=== PATIENT | male | born 1975 | race Caucasian/White ===

== ENCOUNTER 2018-01-27 18:15 | Emergency (ER) | payer MEDICAID ==
[~2018-01-27] VITALS: Ht 157.5 cm; Wt 88.4 kg
[~2018-01-27 18:15] MED LIST: ATOR40TA78 PO; HYDR12.53; LOSA25TA5 PO; METF-365; PANT20TA2 PO; SITA1TAB5 PO
[2018-01-27] MEDS ORDERED: LIDOCAINE 2% VISCOUS, 100ML MM ONE (19:00)
[2018-01-27 19:15] LABS: BASOPHILS # (AUTO) 0.03 x10^3/uL (0-0.1); BASOPHILS % (AUTO) 0 % (0-1); EOSINOPHILS # (AUTO) 0.26 x10^3/uL (0-0.4); EOSINOPHILS % (AUTO) 4 % (1-7); LYMPHOCYTES # (AUTO) 2.63 x10^3/uL (1-3.4); LYMPHOCYTES % (AUTO) 39 % (22-44); MD NO; MEAN CORPUSCULAR HEMOGLOBIN 29.6 pg (27.5-34.5); MEAN CORPUSCULAR HGB CONC 34.1 g/dL (33.2-36.2); MEAN CORPUSCULAR VOLUME 86.7 fL (81-97); MEAN PLATELET VOLUME 7.8 fL (7.4-10.4); MONOCYTES # (AUTO) 0.33 x10^3/uL (0.2-0.8); MONOCYTES % (AUTO) 5 % (2-9); NEUTROPHILS # (AUTO) 3.57 x10^3/uL (1.8-6.8); NEUTROPHILS % (AUTO) 52 % (42-75); PLATELET COUNT 296 x10^3/uL (130-400); RED BLOOD COUNT 5.23 x10^6/uL (4.38-5.82); RED CELL DISTRIBUTION WIDTH 13.8 % (9.4-14.8)
[2018-01-27 19:24] LABS: ALANINE AMINOTRANSFERASE 32 U/L (12-78); ANION GAP 9 mmol/L (5-15); CALCIUM 8.4 mg/dL (8.5-10.1); CHLORIDE 104 mmol/L (98-107); CREATININE 1.03 mg/dL (0.7-1.3)
[2018-01-27 19:28] LABS: ALKALINE PHOSPHATASE 70 U/L (45-117); BILIRUBIN,TOTAL 0.4 mg/dL (0.2-1.0); TOTAL PROTEIN 7.6 g/dL (6.4-8.2)
[2018-01-27] MEDS ORDERED: LIDOCAINE GEL 2%, 5ML ONE (19:34)
[2018-01-27] MEDS ORDERED: HYDROmorphone 2 MG/ML, 1ML ONE (19:35)
[2018-01-27 19:44] VITALS: BP 132/83
[2018-01-27] MEDS ORDERED: HYDROmorphone 1 MG/ML, 1ML IM ONE (20:00)
[2018-01-27 21:08] LABS: MICROSCOPIC AUTO
[2018-01-27 21:20] LABS: CULTURE INDICATED? NO
[2018-01-27] MEDS ORDERED: OXYcodone/APAP 5/325MG TABLET ONE (21:29)
[2018-01-27] MEDS ORDERED: OXYcodone/APAP 5/325MG TABLET PO ONE (21:30)
== END 2018-01-27 21:40 | disposition home or self-care (01) ==
LOC: ED 21:10
DX: R33.9 Retention of urine, unspecified (principal); R14.0 Abdominal distension (gaseous); E78.00 Pure hypercholesterolemia, unspecified; I10 Essential (primary) hypertension; E11.9 Type 2 diabetes mellitus without complications
CPT/HCPCS: 36415; 51702; 80053; 81001; 85025; 96372; 99285; J1170; 51701; P9612

== ENCOUNTER 2018-02-13 08:24 | Emergency (ER) | payer MEDICAID, OTHER ==
[~2018-02-13] VITALS: Ht 157.5 cm; Wt 85.0 kg
[2018-02-13] MEDS ORDERED: HYDROcodone/APAP 5/325 TABLET PO PRN (09:30)
[2018-02-13] MEDS ORDERED: HYDROcodone/APAP 5/325 TABLET ONE (10:07)
[2018-02-13 10:53] VITALS: BP 136/70
== END 2018-02-13 10:55 | disposition home or self-care (01) ==
LOC: ED 09:54
DX: S16.1XXA Strain of muscle, fascia and tendon at neck level, initial encounter (principal); I10 Essential (primary) hypertension; E11.9 Type 2 diabetes mellitus without complications; V49.40XA Driver injured in collision with unspecified motor vehicles in traffic accident, initial encounter; Y93.89 Activity, other specified; Y92.89 Other specified places as the place of occurrence of the external cause; Y99.8 Other external cause status
CPT/HCPCS: 72125; 99284

== ENCOUNTER 2019-03-08 18:07 | Emergency (ER) | payer MEDICAID, OTHER ==
[~2019-03-08] VITALS: Ht 157.5 cm; Wt 82.8 kg
[2019-03-08 21:51] VITALS: BP 108/69
== END 2019-03-08 22:00 | disposition home or self-care (01) ==
LOC: ED 19:02
DX: N30.00 Acute cystitis without hematuria (principal); R10.11 Right upper quadrant pain; E78.5 Hyperlipidemia, unspecified; E78.00 Pure hypercholesterolemia, unspecified; E11.9 Type 2 diabetes mellitus without complications; I10 Essential (primary) hypertension; F17.200 Nicotine dependence, unspecified, uncomplicated
CPT/HCPCS: 36415; 76700; 80053; 81001; 83690; 85025; 87086; 96374; 96375; 99284; J1885; J2270; J2405

== ENCOUNTER 2019-07-23 09:01 | Emergency (ER) | payer SELFPAY ==
[~2019-07-23] VITALS: Ht 157.5 cm; Wt 89.5 kg
[~2019-07-23 09:01] MED LIST changes: +GABA300S PO; +HYDR12.517; -HYDR12.53; +LOSA25TA25 PO; -LOSA25TA5 PO; +METF-650 PO; +[UNRECOGNIZED DRUG - OTHER]
[2019-07-23 09:06] VITALS: BP 175/109
[2019-07-23] MEDS ORDERED: HYDROcodone/APAP 5/325 TABLET PO ONE (10:30)
[2019-07-23] MEDS ORDERED: HYDROcodone/APAP 5/325 TABLET ONE (10:35)
== END 2019-07-23 10:57 | disposition home or self-care (01) ==
LOC: ED 10:39
DX: K08.89 Other specified disorders of teeth and supporting structures (principal); I10 Essential (primary) hypertension; E11.9 Type 2 diabetes mellitus without complications; E78.5 Hyperlipidemia, unspecified; F17.200 Nicotine dependence, unspecified, uncomplicated
CPT/HCPCS: 99283

== ENCOUNTER 2019-09-04 17:48 | Emergency (ER) | payer SELFPAY ==
[~2019-09-04] VITALS: Ht 154.9 cm; Wt 86.0 kg
[2019-09-04] MEDS ORDERED: HYDROmorphone 1 MG/ML, 1ML INJ ONE (20:20)
[2019-09-04] MEDS ORDERED: HYDROmorphone 1 MG/ML, 1ML INJ IM ONE (20:30)
[2019-09-04 20:31] VITALS: BP 114/60
[2019-09-04 20:37] LABS: BASOPHILS # (AUTO) 0.02 x10^3/uL (0-0.1); BASOPHILS % (AUTO) 0 % (0-1); EOSINOPHILS # (AUTO) 0.03 x10^3/uL (0-0.4); EOSINOPHILS % (AUTO) 0 % (1-7); LYMPHOCYTES % (AUTO) 16 % (22-44); MD NO; MEAN CORPUSCULAR HEMOGLOBIN 29.9 pg (27.5-34.5); MEAN CORPUSCULAR HGB CONC 34.1 g/dL (33.2-36.2); MEAN CORPUSCULAR VOLUME 87.7 fL (81-97); MEAN PLATELET VOLUME 7.9 fL (7.4-10.4); MONOCYTES # (AUTO) 0.64 x10^3/uL (0.2-0.8); MONOCYTES % (AUTO) 5 % (2-9); NEUTROPHILS # (AUTO) 9.16 x10^3/uL (1.8-6.8); NEUTROPHILS % (AUTO) 78 % (42-75); PLATELET COUNT 279 x10^3/uL (130-400); RED BLOOD COUNT 5.36 x10^6/uL (4.38-5.82); RED CELL DISTRIBUTION WIDTH 12.9 % (9.4-14.8)
[2019-09-04 20:46] LABS: ANION GAP 9 mmol/L (5-15); CALCIUM 8.9 mg/dL (8.5-10.1); CHLORIDE 100 mmol/L (98-107); CREATININE 1.06 mg/dL (0.7-1.3)
[2019-09-04 20:50] LABS: MICROSCOPIC AUTO
[2019-09-04 20:57] LABS: CULTURE INDICATED? YES
[2019-09-04] MEDS ORDERED: CEFDINIR 300 MG CAPSULE ONE (22:24)
[2019-09-04] MEDS ORDERED: CEFDINIR 300 MG CAPSULE PO ONE (22:30)
== END 2019-09-04 22:34 | disposition home or self-care (01) ==
LOC: ED 20:11
DX: N30.00 Acute cystitis without hematuria (principal); N45.1 Epididymitis; I10 Essential (primary) hypertension; E11.9 Type 2 diabetes mellitus without complications; E78.5 Hyperlipidemia, unspecified; E78.00 Pure hypercholesterolemia, unspecified
CPT/HCPCS: 36415; 76870; 80048; 81001; 82040; 85025; 87077; 87086; 96372; 99284; J1170; 87186

== ENCOUNTER 2019-09-24 18:04 | Emergency (ER) | payer SELFPAY ==
[~2019-09-24] VITALS: Ht 162.6 cm; Wt 87.0 kg
--- NOTE | 2019-09-24 18:41 | NUR ---
PT TO ROOM 35 W/ C/O L TESTICLE SWELLING. PT STATES HE HAAD IT 1 WEEK AGO AND WAS SEEN HERE FOR SAME. WAS SENT HOME W/ ABX FOR UTI. PT STATES SWELLING STARTED AGAIN THIS AM BUT HAD TO GO TO WORK PRIOR TO COMING TO ED. PT RESTING ON GURNATACHA. NADN. VSS. PIV INITIATED. ERP DR. ETIENNE AT BEDSIDE.
[2019-09-24 18:54] LABS: BASOPHILS # (AUTO) 0.07 x10^3/uL (0-0.1); BASOPHILS % (AUTO) 1 % (0-1); EOSINOPHILS % (AUTO) 1 % (1-7); LYMPHOCYTES # (AUTO) 1.91 x10^3/uL (1-3.4); LYMPHOCYTES % (AUTO) 17 % (22-44); MD NO; MEAN CORPUSCULAR HEMOGLOBIN 29.7 pg (27.5-34.5); MEAN CORPUSCULAR HGB CONC 34.1 g/dL (33.2-36.2); MEAN CORPUSCULAR VOLUME 87.1 fL (81-97); MEAN PLATELET VOLUME 6.9 fL (7.4-10.4); MONOCYTES # (AUTO) 0.63 x10^3/uL (0.2-0.8); MONOCYTES % (AUTO) 6 % (2-9); NEUTROPHILS # (AUTO) 8.63 x10^3/uL (1.8-6.8); NEUTROPHILS % (AUTO) 76 % (42-75); PLATELET COUNT 419 x10^3/uL (130-400); RED BLOOD COUNT 4.93 x10^6/uL (4.38-5.82); RED CELL DISTRIBUTION WIDTH 12.9 % (9.4-14.8)
[2019-09-24] MEDS ORDERED: ONDANSETRON ODT 4 MG PO ONE (19:00)
[2019-09-24] MEDS ORDERED: KETOROLAC 30 MG/1 ML IVPush ONE (19:00)
[2019-09-24 19:03] LABS: ALBUMIN 3.9 g/dL (3.4-5.0); ANION GAP 8 mmol/L (5-15); CALCIUM 8.9 mg/dL (8.5-10.1); CHLORIDE 102 mmol/L (98-107)
--- NOTE | 2019-09-24 19:04 | NUR ---
REPORT GIVEN TO JOCELINE MTZ RN.
[2019-09-24] MEDS ORDERED: ONDANSETRON 2MG/ML, 2ML ONE (19:06)
[2019-09-24] MEDS ORDERED: KETOROLAC 30 MG/1 ML ONE (19:06)
[2019-09-24] MEDS ORDERED: HYDROcodone/APAP 5/325 TABLET ONE ×2 (19:07→21:13)
[2019-09-24] MEDS: HYDROcodone/APAP 5/325 TABLET PO PRN ×2 (19:17→21:17)
[2019-09-24 19:36] LABS: MICROSCOPIC AUTO
[2019-09-24 19:43] LABS: CULTURE INDICATED? YES
[2019-09-24] MEDS ORDERED: CIPROFLOXACIN 500 MG TABLET PO ONE (21:00)
[2019-09-24] MEDS ORDERED: CIPROFLOXACIN 500 MG TABLET ONE (21:12)
[2019-09-24 21:18] VITALS: BP 103/75
[2019-09-24] MEDS ORDERED: CEFTRIAXONE 1,000 MG ONE (21:22)
[2019-09-24] MEDS ORDERED: CEFTRIAXONE 1,000 MG IM ONE (21:30)
== END 2019-09-24 21:50 | disposition home or self-care (01) ==
LOC: ED 21:20
DX: N30.00 Acute cystitis without hematuria (principal); N50.812 Left testicular pain; N45.1 Epididymitis; I10 Essential (primary) hypertension; E11.9 Type 2 diabetes mellitus without complications; E78.00 Pure hypercholesterolemia, unspecified; E78.5 Hyperlipidemia, unspecified
CPT/HCPCS: 36415; 76870; 80048; 81001; 82040; 85025; 87077; 87086; 87186; 87491; 87591; 93975; 96372; 96374; 99285; J0696; J1885; Q0162

== ENCOUNTER 2019-10-26 09:11 | Emergency (ER) | payer MEDICAID, OTHER ==
[~2019-10-26] VITALS: Ht 157.5 cm; Wt 84.5 kg
--- NOTE | 2019-10-26 10:25 | NUR ---
PATIENT DENIES FEVER; BUT COMPLAINS OF POLYURIA/DYSURIA X 10 HOURS DOES NOT APPEAR TOXIC BLADDER SCAN OF 435ML
--- NOTE | 2019-10-26 10:36 | NUR ---
STRAIGHT CATHERIZED FOR 500ML OF C/Y URINE. UA SENT
[2019-10-26 11:03] LABS: MICROSCOPIC AUTO
[2019-10-26 11:07] LABS: CULTURE INDICATED? YES
[2019-10-26 11:15] VITALS: BP 138/71
[2019-10-26] MEDS ORDERED: LIDOCAINE-MPF 1%, 2ML ONE (11:29)
[2019-10-26] MEDS ORDERED: CEFTRIAXONE 1,000 MG ONE (11:29)
[2019-10-26] MEDS ORDERED: CEFTRIAXONE 1,000 MG IM ONE (11:30)
[2019-10-26] MEDS ORDERED: LIDOCAINE 1%, 2ML INFIL ONE (12:00)
== END 2019-10-26 12:00 | disposition home or self-care (01) ==
LOC: ED 11:54
DX: N30.00 Acute cystitis without hematuria (principal); R30.0 Dysuria; F17.200 Nicotine dependence, unspecified, uncomplicated; E78.00 Pure hypercholesterolemia, unspecified; E11.65 Type 2 diabetes mellitus with hyperglycemia; E78.5 Hyperlipidemia, unspecified; I10 Essential (primary) hypertension; E66.9 Obesity, unspecified
CPT/HCPCS: 81001; 87077; 87086; 96372; 99283; J0696; J3490; 87186

== ENCOUNTER 2019-12-01 19:30 | Inpatient (IN) | payer MEDICAID ==
[~2019-12-01] VITALS: Ht 157.5 cm; Wt 87.9 kg
--- NOTE | 2019-12-01 20:00 | NUR ---
PT PRESENTING TO ER FOR RIGHT UPPER ABD PAIN AND EPIGASTRIC PAIN, N/V/D X3-4 DAYS. PT STS PAIN WORSENS AFTER EATING AND WHEN LAYING DOWN. CONNECTED TO ALL MONITORING, TACHY HR 130S AND RAPID RESP RATE. IV PLACED, LABS DRAWN. AWAITING ORDERS FROM MD AT THIS TIME. CALL LIGHT WITHIN REACH
[2019-12-01] MEDS ORDERED: HYDROmorphone 2 MG/ML, 1ML ONE ×2 (20:21→22:47)
[2019-12-01] MEDS ORDERED: ONDANSETRON 2MG/ML, 2ML ONE (20:21)
[2019-12-01] MEDS ORDERED: ONDANSETRON 2MG/ML, 2ML IVPush ONE (20:30)
[2019-12-01] MEDS ORDERED: SODIUM CHLORIDE 0.9% 1,000ML IVBOLUS ONE (20:30)
[2019-12-01] MEDS: HYDROmorphone 1 MG/ML, 1ML INJ IVPush PRN ×2 (20:33→22:52)
--- NOTE | 2019-12-01 20:51 | NUR ---
PT RESTING MORE COMFORTABLY IN BED AFTER MEDS GIVEN. US AT BEDSIDE. PT AWARE OF NEED FOR URINE SAMPLE. CALL LIGHT WITHIN REACH. WILL CONTINUE TO MONITOR
[2019-12-01 20:58] LABS: BASOPHILS # (AUTO) 0.03 x10^3/uL (0-0.1); BASOPHILS % (AUTO) 0 % (0-1); EOSINOPHILS # (AUTO) 0.17 x10^3/uL (0-0.4); EOSINOPHILS % (AUTO) 2 % (1-7); LYMPHOCYTES # (AUTO) 0.93 x10^3/uL (1-3.4); LYMPHOCYTES % (AUTO) 11 % (22-44); MD NO; MEAN CORPUSCULAR HEMOGLOBIN 28.4 pg (27.5-34.5); MEAN CORPUSCULAR VOLUME 83.5 fL (81-97); MEAN PLATELET VOLUME 7.7 fL (7.4-10.4); MONOCYTES # (AUTO) 0.29 x10^3/uL (0.2-0.8); MONOCYTES % (AUTO) 3 % (2-9); NEUTROPHILS # (AUTO) 7.33 x10^3/uL (1.8-6.8); NEUTROPHILS % (AUTO) 84 % (42-75); PLATELET COUNT 278 x10^3/uL (130-400); RED BLOOD COUNT 5.52 x10^6/uL (4.38-5.82); RED CELL DISTRIBUTION WIDTH 14.1 % (9.4-14.8)
[2019-12-01 21:10] LABS: ALANINE AMINOTRANSFERASE 26 U/L (12-78); ALBUMIN 4.1 g/dL (3.4-5.0); ANION GAP 13 mmol/L (5-15); CALCIUM 9.2 mg/dL (8.5-10.1); CHLORIDE 101 mmol/L (98-107); CREATININE 0.89 mg/dL (0.7-1.3)
[2019-12-01 21:14] LABS: ALKALINE PHOSPHATASE 85 U/L (45-117); BILIRUBIN,TOTAL 0.8 mg/dL (0.2-1.0); TOTAL PROTEIN 8.5 g/dL (6.4-8.2); TROPONIN I < 0.015 ng/mL (0.000-0.045)
--- NOTE | 2019-12-01 21:19 | NUR ---
PT TAKEN TO CT
[2019-12-01] MEDS ORDERED: OMNIPAQUE 350 MG/ML, 100ML BOTTLE ONE (21:30)
[2019-12-01] MEDS ORDERED: POTASSIUM CHLORIDE 20 MEQ in SODIUM CHLORIDE 0.9% 250 ML IV ONE (21:30)
[2019-12-01] MEDS ORDERED: SITA1TAB5 PO (22:05)
[2019-12-01] MEDS ORDERED: GABA300C10 PO (22:05)
[2019-12-01] MEDS ORDERED: METF1000 PO (22:05)
--- NOTE | 2019-12-01 22:06 | NUR ---
TASK RN: DR. MELENDEZ IN TO DISCUSS ED FINDINGS AND POC WITH PT. PT. REPORTS TO ERMD THAT HE STRAIGHT CATH'S HIMSELF X [address] MELENDEZ DISCUSSING NEED FOR CATHETER WITH PT. IVF INFUSING PER ORDER. MED REC COMPLETED WITH PT. VS UPDATED. ALL SAFETY MEASURES OBSERVED.
--- NOTE | 2019-12-01 22:32 | NUR ---
TEMPLE PLACED, UA COLLECTED AND SENT. PT STS PAIN IS INCREASING, ADDITIONAL MEDS TO BE GIVEN FOR PAIN. AWAITING FURTHER ORDERS AT THIS TIME
[2019-12-01 22:41] LABS: MICROSCOPIC AUTO
[2019-12-01 22:43] LABS: CULTURE INDICATED? YES
--- NOTE | 2019-12-01 22:55 | NUR ---
REPORT GIVEN TO RADHA REYNAGA
[2019-12-01] MEDS ORDERED: CIPROFLOXACIN/PMX 400MG/200ML 200 ML IV ONE (23:00)
--- NOTE | 2019-12-01 23:02 | NUR ---
1ST CONTACT C PT. RESTING ON CART. STATES PAIN DECRASED TO 5/10. MILD PRESSURE TO RUQ AREA. TEMPLE FLOWING WELL. VSS. REQUESTNG FOOD & DRINK. CALL LIGHT IN REACH. AWARE OF PLAN TO ADMIT.
[2019-12-01] MEDS ORDERED: SODIUM CHLORIDE 0.9% 1,000 ML IV ONE (23:11)
--- NOTE | 2019-12-01 23:25 | NUR ---
PT GIVEN SANDWICH. ADMITTING AT BS. DENIES ANY OTHER NEEDS. AWARE OF PENDING BED.
[2019-12-01] MEDS ORDERED: MORPHINE SULFATE 4 MG/ML, 1ML IVPush PRN (23:30)
[2019-12-01] MEDS ORDERED: ONDANSETRON 2MG/ML, 2ML IVPush PRN (23:30)
[2019-12-02] MEDS ORDERED: ONDANSETRON 2MG/ML, 2ML IVPush PRN
[2019-12-02] MEDS ORDERED: ACETAMINOPHEN 325 MG TABLET PO PRN
[2019-12-02] MEDS ORDERED: POTASSIUM CHLORIDE 20 MEQ TAB.ER.PRT PO ONE
[2019-12-02] MEDS ORDERED: POLYETHYLENE GLYCOL 17 GM PACKET PO PRN
[2019-12-02 00:42] VITALS: BP 111/66
[2019-12-02] MEDS: CIPROFLOXACIN/PMX 400MG/200ML 200 ML IV SCH ×2 (01:03→12:01)
[2019-12-02] MEDS: NICOTINE 7 MG/24 HR PATCH.TD24 TD SCH (01:04)
[2019-12-02] MEDS: morphine SULFATE 10 MG/ML, 1ML IVPush PRN ×5 (01:04→20:32)
[2019-12-02] MEDS: SODIUM CHLORIDE 0.9% 1,000 ML IV SCH ×3 (01:04→17:05)
[2019-12-02 06:31] LABS: BASOPHILS # (AUTO) 0.03 x10^3/uL (0-0.1); BASOPHILS % (AUTO) 0 % (0-1); EOSINOPHILS # (AUTO) 0.02 x10^3/uL (0-0.4); EOSINOPHILS % (AUTO) 0 % (1-7); LYMPHOCYTES # (AUTO) 0.91 x10^3/uL (1-3.4); LYMPHOCYTES % (AUTO) 12 % (22-44); MD NO; MEAN CORPUSCULAR HEMOGLOBIN 28.7 pg (27.5-34.5); MEAN CORPUSCULAR HGB CONC 33.6 g/dL (33.2-36.2); MEAN CORPUSCULAR VOLUME 85.4 fL (81-97); MEAN PLATELET VOLUME 7.3 fL (7.4-10.4); MONOCYTES # (AUTO) 0.69 x10^3/uL (0.2-0.8); MONOCYTES % (AUTO) 9 % (2-9); NEUTROPHILS # (AUTO) 5.78 x10^3/uL (1.8-6.8); NEUTROPHILS % (AUTO) 78 % (42-75); PLATELET COUNT 237 x10^3/uL (130-400); RED BLOOD COUNT 4.83 x10^6/uL (4.38-5.82); RED CELL DISTRIBUTION WIDTH 14.4 % (9.4-14.8)
[2019-12-02 06:43] LABS: CHLORIDE 106 mmol/L (98-107)
[2019-12-02 06:46] LABS: ANION GAP 10 mmol/L (5-15); CALCIUM 8.2 mg/dL (8.5-10.1); CREATININE 0.86 mg/dL (0.7-1.3)
[2019-12-02] MEDS: INSULIN LISPRO 100 UNITS/ML, PEN SQ-INSULIN SCH ×4 (07:00→21:47)
[2019-12-02 08:10] VITALS: BP 114/72
[2019-12-02] MEDS: LOSARTAN 25MG TABLET PO SCH (08:58)
[2019-12-02] MEDS: PANTOPRAZOLE 20MG TABLET PO SCH (08:58)
[2019-12-02] MEDS: SENNA/DOCUSATE TABLET PO SCH (08:58)
[2019-12-02 14:52] VITALS: BP 121/73
[2019-12-02] MEDS: PHENAZOPYRIDINE 100 MG TABLET PO PRN (18:29)
[2019-12-02] MEDS: ENOXAPARIN 40 MG/0.4 ML SQ SCH (18:29)
[2019-12-02] MEDS: ATORVASTATIN 40 MG TABLET PO SCH (20:32)
[2019-12-02] MEDS: GABAPENTIN 300 MG CAPSULE PO SCH (20:32)
[2019-12-02 20:52] VITALS: BP 107/65
[2019-12-03] MEDS: CIPROFLOXACIN/PMX 400MG/200ML 200 ML IV SCH (00:13)
[2019-12-03] MEDS: NICOTINE 7 MG/24 HR PATCH.TD24 TD SCH ×2 (00:13→23:56)
[2019-12-03] MEDS: PHENAZOPYRIDINE 100 MG TABLET PO PRN ×4 (00:16→21:51)
[2019-12-03 01:58] VITALS: BP 119/76
[2019-12-03] MEDS: SODIUM CHLORIDE 0.9% 1,000 ML IV SCH ×3 (03:16→23:57)
[2019-12-03 05:53] LABS: ALBUMIN 2.8 g/dL (3.4-5.0); ANION GAP 7 mmol/L (5-15); CALCIUM 8.2 mg/dL (8.5-10.1); CHLORIDE 106 mmol/L (98-107)
[2019-12-03 05:55] LABS: ALANINE AMINOTRANSFERASE 20 U/L (12-78); ALKALINE PHOSPHATASE 61 U/L (45-117); BILIRUBIN,TOTAL 0.6 mg/dL (0.2-1.0); CREATININE 0.75 mg/dL (0.7-1.3); TOTAL PROTEIN 6.6 g/dL (6.4-8.2)
[2019-12-03] MEDS: INSULIN LISPRO 100 UNITS/ML, PEN SQ-INSULIN SCH ×4 (07:00→20:52)
[2019-12-03] MEDS: PANTOPRAZOLE 20MG TABLET PO SCH (08:22)
[2019-12-03] MEDS: SENNA/DOCUSATE TABLET PO SCH (08:22)
[2019-12-03] MEDS: LOSARTAN 25MG TABLET PO SCH (08:23)
[2019-12-03 09:46] VITALS: BP 126/83
[2019-12-03 10:22] LABS: BASOPHILS # (AUTO) 0.02 x10^3/uL (0-0.1); BASOPHILS % (AUTO) 0 % (0-1); EOSINOPHILS # (AUTO) 0.12 x10^3/uL (0-0.4); EOSINOPHILS % (AUTO) 2 % (1-7); LYMPHOCYTES # (AUTO) 0.97 x10^3/uL (1-3.4); LYMPHOCYTES % (AUTO) 16 % (22-44); MD NO; MEAN CORPUSCULAR HEMOGLOBIN 28.3 pg (27.5-34.5); MEAN CORPUSCULAR VOLUME 85.7 fL (81-97); MEAN PLATELET VOLUME 7.6 fL (7.4-10.4); MONOCYTES # (AUTO) 0.31 x10^3/uL (0.2-0.8); MONOCYTES % (AUTO) 5 % (2-9); NEUTROPHILS % (AUTO) 76 % (42-75); PLATELET COUNT 197 x10^3/uL (130-400); RED CELL DISTRIBUTION WIDTH 14.4 % (9.4-14.8)
[2019-12-03] MEDS: CEFTRIAXONE PMX 2GM/50ML 50 ML IV SCH (12:54)
[2019-12-03 14:00] VITALS: BP 130/86
[2019-12-03] MEDS: ENOXAPARIN 40 MG/0.4 ML SQ SCH (18:12)
[2019-12-03 19:30] VITALS: BP 137/91
[2019-12-03] MEDS: ATORVASTATIN 40 MG TABLET PO SCH (20:51)
[2019-12-03] MEDS: GABAPENTIN 300 MG CAPSULE PO SCH (20:51)
[2019-12-03] MEDS: morphine SULFATE 10 MG/ML, 1ML IVPush PRN ×2 (20:52→23:57)
[2019-12-04 01:45] VITALS: BP 110/74
[2019-12-04 06:42] LABS: BASOPHILS # (AUTO) 0.02 x10^3/uL (0-0.1); BASOPHILS % (AUTO) 1 % (0-1); EOSINOPHILS # (AUTO) 0.19 x10^3/uL (0-0.4); EOSINOPHILS % (AUTO) 4 % (1-7); LYMPHOCYTES # (AUTO) 1.18 x10^3/uL (1-3.4); LYMPHOCYTES % (AUTO) 24 % (22-44); MD NO; MEAN CORPUSCULAR HEMOGLOBIN 28.5 pg (27.5-34.5); MEAN CORPUSCULAR HGB CONC 33.7 g/dL (33.2-36.2); MEAN CORPUSCULAR VOLUME 84.6 fL (81-97); MEAN PLATELET VOLUME 7.6 fL (7.4-10.4); MONOCYTES # (AUTO) 0.65 x10^3/uL (0.2-0.8); MONOCYTES % (AUTO) 13 % (2-9); NEUTROPHILS # (AUTO) 2.83 x10^3/uL (1.8-6.8); NEUTROPHILS % (AUTO) 58 % (42-75); PLATELET COUNT 226 x10^3/uL (130-400); RED BLOOD COUNT 4.57 x10^6/uL (4.38-5.82); RED CELL DISTRIBUTION WIDTH 13.8 % (9.4-14.8)
[2019-12-04 06:52] LABS: ALBUMIN 2.8 g/dL (3.4-5.0); ANION GAP 7 mmol/L (5-15); CALCIUM 8.3 mg/dL (8.5-10.1); CHLORIDE 106 mmol/L (98-107)
[2019-12-04 06:55] LABS: ALANINE AMINOTRANSFERASE 30 U/L (12-78); ALKALINE PHOSPHATASE 68 U/L (45-117); BILIRUBIN,TOTAL 0.4 mg/dL (0.2-1.0); CREATININE 0.64 mg/dL (0.7-1.3); TOTAL PROTEIN 6.9 g/dL (6.4-8.2)
[2019-12-04 07:21] VITALS: BP 121/76
[2019-12-04] MEDS ORDERED: LIDOCAINE JELLY 2%, 30GM TP ONE (08:00)
[2019-12-04] MEDS: PANTOPRAZOLE 20MG TABLET PO SCH (08:06)
[2019-12-04] MEDS: INSULIN LISPRO 100 UNITS/ML, PEN SQ-INSULIN SCH ×4 (08:06→21:00)
[2019-12-04] MEDS: SENNA/DOCUSATE TABLET PO SCH (08:06)
[2019-12-04] MEDS: LOSARTAN 25MG TABLET PO SCH (08:06)
[2019-12-04] MEDS: PHENAZOPYRIDINE 100 MG TABLET PO PRN ×3 (08:10→22:36)
[2019-12-04] MEDS ORDERED: SINCALIDE (KINEVAC) 5 MCG ONE (09:05)
[2019-12-04] MEDS: morphine SULFATE 10 MG/ML, 1ML IVPush PRN ×2 (10:19→17:18)
[2019-12-04] MEDS: CEFTRIAXONE PMX 2GM/50ML 50 ML IV SCH (11:30)
[2019-12-04 13:04] VITALS: BP 106/72
[2019-12-04] MEDS: SODIUM CHLORIDE 0.9% 1,000 ML IV SCH ×2 (14:34→22:47)
[2019-12-04] MEDS: ENOXAPARIN 40 MG/0.4 ML SQ SCH (18:09)
[2019-12-04 19:08] VITALS: BP 104/70
[2019-12-04 19:23] LABS: MICROSCOPIC AUTO
[2019-12-04] MEDS: ATORVASTATIN 40 MG TABLET PO SCH (22:35)
[2019-12-04] MEDS: GABAPENTIN 300 MG CAPSULE PO SCH (22:35)
[2019-12-04] MEDS: NICOTINE 7 MG/24 HR PATCH.TD24 TD SCH (22:47)
[2019-12-05 00:31] VITALS: BP 122/80
[2019-12-05] MEDS: PHENAZOPYRIDINE 100 MG TABLET PO PRN ×2 (06:47→15:17)
[2019-12-05] MEDS: INSULIN LISPRO 100 UNITS/ML, PEN SQ-INSULIN SCH ×4 (07:00→21:00)
[2019-12-05 08:03] VITALS: BP 141/86
[2019-12-05] MEDS: LOSARTAN 25MG TABLET PO SCH (08:37)
[2019-12-05] MEDS: SENNA/DOCUSATE TABLET PO SCH (08:37)
[2019-12-05] MEDS: PANTOPRAZOLE 20MG TABLET PO SCH (08:37)
[2019-12-05] MEDS: SODIUM CHLORIDE 0.9% 1,000 ML IV SCH ×2 (08:37→17:20)
[2019-12-05] MEDS: morphine SULFATE 10 MG/ML, 1ML IVPush PRN ×2 (10:59→21:00)
[2019-12-05] MEDS: CEFTRIAXONE PMX 2GM/50ML 50 ML IV SCH (11:45)
[2019-12-05 14:00] VITALS: BP 118/72
[2019-12-05] MEDS: ENOXAPARIN 40 MG/0.4 ML SQ SCH (17:20)
[2019-12-05] MEDS: GABAPENTIN 300 MG CAPSULE PO SCH (20:59)
[2019-12-05] MEDS: ATORVASTATIN 40 MG TABLET PO SCH (20:59)
[2019-12-05 21:07] VITALS: BP 137/88
[2019-12-06 00:18] VITALS: BP 117/79
[2019-12-06] MEDS: NICOTINE 7 MG/24 HR PATCH.TD24 TD SCH (00:19)
[2019-12-06] MEDS: SODIUM CHLORIDE 0.9% 1,000 ML IV SCH ×2 (04:17→14:19)
[2019-12-06] MEDS: PHENAZOPYRIDINE 100 MG TABLET PO PRN ×3 (05:53→22:10)
[2019-12-06] MEDS: PANTOPRAZOLE 20MG TABLET PO SCH (07:53)
[2019-12-06] MEDS: LOSARTAN 25MG TABLET PO SCH (07:53)
[2019-12-06] MEDS: INSULIN LISPRO 100 UNITS/ML, PEN SQ-INSULIN SCH ×4 (07:55→22:10)
[2019-12-06 08:06] VITALS: BP 139/87
[2019-12-06] MEDS: SENNA/DOCUSATE TABLET PO SCH (09:00)
[2019-12-06] MEDS: morphine SULFATE 10 MG/ML, 1ML IVPush PRN ×2 (09:19→18:10)
[2019-12-06] MEDS: CEFTRIAXONE PMX 2GM/50ML 50 ML IV SCH (11:40)
[2019-12-06 15:01] VITALS: BP 119/82
[2019-12-06] MEDS: ENOXAPARIN 40 MG/0.4 ML SQ SCH (16:22)
[2019-12-06 19:22] VITALS: BP 121/79
[2019-12-06] MEDS: GABAPENTIN 300 MG CAPSULE PO SCH (22:11)
[2019-12-06] MEDS: ATORVASTATIN 40 MG TABLET PO SCH (22:11)
[2019-12-07] MEDS: NICOTINE 7 MG/24 HR PATCH.TD24 TD SCH (00:21)
[2019-12-07] MEDS: morphine SULFATE 10 MG/ML, 1ML IVPush PRN ×2 (00:40→08:46)
[2019-12-07] MEDS: SODIUM CHLORIDE 0.9% 1,000 ML IV SCH ×3 (00:40→20:58)
[2019-12-07 00:42] VITALS: BP 133/84
[2019-12-07 04:48] LABS: HCT (SEDRATE) 40.1 % (39.2-51.8)
[2019-12-07 04:55] LABS: BASOPHILS # (AUTO) 0.04 x10^3/uL (0-0.1); BASOPHILS % (AUTO) 1 % (0-1); EOSINOPHILS # (AUTO) 0.26 x10^3/uL (0-0.4); EOSINOPHILS % (AUTO) 5 % (1-7); LYMPHOCYTES # (AUTO) 1.65 x10^3/uL (1-3.4); LYMPHOCYTES % (AUTO) 29 % (22-44); MD NO; MEAN CORPUSCULAR HEMOGLOBIN 27.8 pg (27.5-34.5); MEAN CORPUSCULAR HGB CONC 32.8 g/dL (33.2-36.2); MEAN CORPUSCULAR VOLUME 84.7 fL (81-97); MEAN PLATELET VOLUME 6.6 fL (7.4-10.4); MONOCYTES # (AUTO) 0.47 x10^3/uL (0.2-0.8); MONOCYTES % (AUTO) 8 % (2-9); NEUTROPHILS % (AUTO) 57 % (42-75); PLATELET COUNT 322 x10^3/uL (130-400); RED BLOOD COUNT 4.75 x10^6/uL (4.38-5.82); RED CELL DISTRIBUTION WIDTH 14.4 % (9.4-14.8)
[2019-12-07 04:58] LABS: ALANINE AMINOTRANSFERASE 50 U/L (12-78); ANION GAP 7 mmol/L (5-15); C-REACTIVE PROTEIN, QUANT 0.88 mg/dL (0.02-0.49); CALCIUM 8.5 mg/dL (8.5-10.1); CHLORIDE 106 mmol/L (98-107)
[2019-12-07 05:00] LABS: ALKALINE PHOSPHATASE 73 U/L (45-117); BILIRUBIN,TOTAL 0.4 mg/dL (0.2-1.0); CREATININE 0.75 mg/dL (0.7-1.3); TOTAL PROTEIN 7.3 g/dL (6.4-8.2)
[2019-12-07 07:37] VITALS: BP 146/98
[2019-12-07] MEDS: SENNA/DOCUSATE TABLET PO SCH ×2 (08:42→08:50)
[2019-12-07] MEDS: PANTOPRAZOLE 20MG TABLET PO SCH (08:45)
[2019-12-07] MEDS: LOSARTAN 25MG TABLET PO SCH (08:45)
[2019-12-07] MEDS: PHENAZOPYRIDINE 100 MG TABLET PO PRN ×2 (08:45→16:24)
[2019-12-07] MEDS: INSULIN LISPRO 100 UNITS/ML, PEN SQ-INSULIN SCH ×4 (08:46→20:50)
[2019-12-07] MEDS: CEFTRIAXONE PMX 2GM/50ML 50 ML IV SCH (11:52)
[2019-12-07] MEDS: MORPHINE SULFATE 4 MG/ML, 1ML IVPush PRN ×3 (11:53→20:51)
[2019-12-07 13:45] VITALS: BP 127/78
[2019-12-07] MEDS ORDERED: OMNIPAQUE 350 MG/ML, 100ML BOTTLE ONE (16:14)
[2019-12-07] MEDS: ENOXAPARIN 40 MG/0.4 ML SQ SCH (16:24)
[2019-12-07 18:45] VITALS: BP 136/85
[2019-12-07] MEDS: GABAPENTIN 300 MG CAPSULE PO SCH (20:51)
[2019-12-07] MEDS: ATORVASTATIN 40 MG TABLET PO SCH (20:51)
[2019-12-08] MEDS: PHENAZOPYRIDINE 100 MG TABLET PO PRN ×3 (00:06→15:58)
[2019-12-08] MEDS: NICOTINE 7 MG/24 HR PATCH.TD24 TD SCH (00:06)
[2019-12-08 02:00] VITALS: BP 126/88
[2019-12-08] MEDS: MORPHINE SULFATE 4 MG/ML, 1ML IVPush PRN ×5 (02:51→15:58)
[2019-12-08] MEDS: SODIUM CHLORIDE 0.9% 1,000 ML IV SCH (06:24)
[2019-12-08 07:12] VITALS: BP 136/89
[2019-12-08] MEDS: INSULIN LISPRO 100 UNITS/ML, PEN SQ-INSULIN SCH ×3 (08:08→15:59)
[2019-12-08] MEDS: SENNA/DOCUSATE TABLET PO SCH (08:08)
[2019-12-08] MEDS: LOSARTAN 25MG TABLET PO SCH (08:08)
[2019-12-08] MEDS: PANTOPRAZOLE 20MG TABLET PO SCH (08:08)
[2019-12-08] MEDS ORDERED: TAMSULOSIN 0.4 MG CAP.ER.24H PO SCH (09:00)
[2019-12-08] MEDS ORDERED: OXYBUTYNIN CHLORIDE 5 MG TABLET PO PRN (12:00)
[2019-12-08 12:28] VITALS: BP 124/83
[2019-12-08] MEDS: CEFTRIAXONE PMX 2GM/50ML 50 ML IV SCH (12:56)
[2019-12-08] MEDS ORDERED: CEFT2FRO2 IVPB (15:36)
[2019-12-08] MEDS ORDERED: PHEN-582 PO (15:36)
[2019-12-08] MEDS ORDERED: OXYB5TAB10 PO (15:36)
[2019-12-08] MEDS ORDERED: TAMS-11 PO (15:36)
[2019-12-08] MEDS: ENOXAPARIN 40 MG/0.4 ML SQ SCH (15:59)
== END 2019-12-08 19:00 | disposition home health service (06) | DRG 871 ==
LOC: ED 19:54 → EDIP 23:15 → 3N 12-02 00:40
PROVIDERS: ADMIT Family Medicine; ATTEND Family Medicine
PROC: 02HV33Z Insertion of Infusion Device into Superior Vena Cava, Percutaneous Approach (ICD-10-PCS; principal; 2019-12-08)
PROC: B5181ZA Fluoroscopy of Superior Vena Cava using Low Osmolar Contrast, Guidance (ICD-10-PCS; 2019-12-08)
PROC: B548ZZA Ultrasonography of Superior Vena Cava, Guidance (ICD-10-PCS; 2019-12-08)
DX: A41.51 Sepsis due to Escherichia coli [E. coli] (principal); K65.1 Peritoneal abscess; N13.6 Pyonephrosis; N41.0 Acute prostatitis; N41.2 Abscess of prostate; E11.65 Type 2 diabetes mellitus with hyperglycemia; E78.00 Pure hypercholesterolemia, unspecified; E78.5 Hyperlipidemia, unspecified; E86.0 Dehydration; E87.6 Hypokalemia; F17.210 Nicotine dependence, cigarettes, uncomplicated; I10 Essential (primary) hypertension; K76.0 Fatty (change of) liver, not elsewhere classified; N31.9 Neuromuscular dysfunction of bladder, unspecified; N32.0 Bladder-neck obstruction; N40.1 Benign prostatic hyperplasia with lower urinary tract symptoms; R33.8 Other retention of urine; Z79.84 Long term (current) use of oral hypoglycemic drugs; Z88.8 Allergy status to other drugs, medicaments and biological substances
CPT/HCPCS: 36415; 36573; 71045; 74177; 76700; 78227; 80048; 80053; 81001; 82962; 83605; 83690; 83735; 84145; 84484; 85025; 85651; 86140; 87040; 87077; 87086; 87186; 87491; 87591; 87806; 93005; 96361; 96374; G0378; J0696; J0744; J1170; J1650; J2405; J3480; Q9967; A9537; C1751; G0475; J1815; J2270; J2805; J7030; J7050

== ENCOUNTER 2020-03-15 18:05 | Emergency (ER) | payer MEDICAID ==
[~2020-03-15] VITALS: Ht 157.5 cm; Wt 83.9 kg
[~2020-03-15 18:05] MED LIST changes: +CEFT2FRO2 IVPB; +GABA300C10 PO; +METF1000 PO; +OXYB5TAB10 PO; +PHEN-582 PO; +TAMS-11 PO
[2020-03-15 19:08] LABS: MICROSCOPIC AUTO
[2020-03-15 19:12] VITALS: BP 123/76
== END 2020-03-15 20:42 | disposition home or self-care (01) ==
LOC: ED 18:40
DX: N30.00 Acute cystitis without hematuria (principal); I10 Essential (primary) hypertension; E11.9 Type 2 diabetes mellitus without complications
CPT/HCPCS: 81001; 87077; 87086; 87186; 99283

== ENCOUNTER 2020-03-26 17:44 | Emergency (ER) | payer MEDICAID ==
[~2020-03-26] VITALS: Ht 160 cm; Wt 84.8 kg
--- NOTE | 2020-03-26 18:05 | NUR ---
PT C/O PENIS AND LOWER ABD PAIN. STARTED OMNICEF RECENTLY FOR UTI. STATES "ANTIBIOTIC ISN'T WORKING". PT SELF CATHS - IS ABLE TO URINATE "1 OUNCE" BUT UNABLE TO COMPLETELY EMPTY BLADDER. PT REPORTS USING NEW CATH W/ CLEAN PROCEDURE FOR EVERY SELF-CATH. STATES UROLOGIST CALLED HIM ON SATURDAY; PT HAS ADDITIONAL CYSTS ON PANCREASE. DENIES FEVER, STD'S. ADMITS RECENT SEXUAL ACTIVITY.
[2020-03-26 18:26] LABS: MICROSCOPIC NOT IND
[2020-03-26 18:43] LABS: ALBUMIN 4.4 g/dL (3.4-5.0); ANION GAP 8 mmol/L (5-15); CALCIUM 8.9 mg/dL (8.5-10.1); CHLORIDE 108 mmol/L (98-107); CREATININE 0.91 mg/dL (0.7-1.3)
[2020-03-26 18:48] LABS: BASOPHILS # (AUTO) 0.04 x10^3/uL (0-0.1); BASOPHILS % (AUTO) 1 % (0-1); EOSINOPHILS # (AUTO) 0.21 x10^3/uL (0-0.4); EOSINOPHILS % (AUTO) 3 % (1-7); LYMPHOCYTES # (AUTO) 2.29 x10^3/uL (1-3.4); LYMPHOCYTES % (AUTO) 30 % (22-44); MD NO; MEAN CORPUSCULAR HEMOGLOBIN 28.9 pg (27.5-34.5); MEAN CORPUSCULAR HGB CONC 33.4 g/dL (33.2-36.2); MEAN CORPUSCULAR VOLUME 86.6 fL (81-97); MEAN PLATELET VOLUME 7.8 fL (7.4-10.4); MONOCYTES # (AUTO) 0.43 x10^3/uL (0.2-0.8); MONOCYTES % (AUTO) 6 % (2-9); NEUTROPHILS # (AUTO) 4.54 x10^3/uL (1.8-6.8); NEUTROPHILS % (AUTO) 60 % (42-75); PLATELET COUNT 306 x10^3/uL (130-400); RED BLOOD COUNT 5.82 x10^6/uL (4.38-5.82); RED CELL DISTRIBUTION WIDTH 14.2 % (9.4-14.8)
[2020-03-26] MEDS ORDERED: HYDROcodone/APAP 5/325 TABLET ONE (19:22)
[2020-03-26] MEDS ORDERED: HYDROcodone/APAP 5/325 TABLET PO ONE (19:30)
[2020-03-26 19:40] VITALS: BP 133/74
== END 2020-03-26 19:42 | disposition home or self-care (01) ==
LOC: ED 19:37
DX: R30.0 Dysuria (principal); I10 Essential (primary) hypertension; E11.9 Type 2 diabetes mellitus without complications; E78.5 Hyperlipidemia, unspecified; E78.00 Pure hypercholesterolemia, unspecified; F17.200 Nicotine dependence, unspecified, uncomplicated
CPT/HCPCS: 36415; 80048; 81003; 82040; 83605; 84145; 85025; 87040; 99283

== ENCOUNTER 2020-06-24 18:01 | Emergency (ER) | payer MEDICAID ==
[~2020-06-24] VITALS: Ht 157.5 cm; Wt 85.0 kg
[~2020-06-24 18:01] MED LIST changes: -METF-650 PO; +METF-735 PO
[2020-06-24 19:12] LABS: BASOPHILS % (AUTO) 1 % (0-1); EOSINOPHILS % (AUTO) 2 % (1-7); LYMPHOCYTES % (AUTO) 32 % (22-44); MEAN CORPUSCULAR HEMOGLOBIN 29.5 pg (27.5-34.5); MEAN CORPUSCULAR HGB CONC 33.6 g/dL (33.2-36.2); MEAN PLATELET VOLUME 7.3 fL (7.4-10.4); MONOCYTES % (AUTO) 7 % (2-9); NEUTROPHILS % (AUTO) 59 % (42-75); PLATELET COUNT 293 x10^3/uL (130-400); RED BLOOD COUNT 5.51 x10^6/uL (4.38-5.82); RED CELL DISTRIBUTION WIDTH 13.4 % (9.4-14.8)
[2020-06-24 19:13] LABS: ALBUMIN 4.3 g/dL (3.4-5.0); ANION GAP 9 mmol/L (5-15); CALCIUM 9.1 mg/dL (8.5-10.1); CHLORIDE 107 mmol/L (98-107); CREATININE 0.96 mg/dL (0.7-1.3)
[2020-06-24 19:15] LABS: MD NO
--- NOTE | 2020-06-24 19:43 | NUR ---
[id number]
--- NOTE | 2020-06-24 19:44 | NUR ---
[id number]
[2020-06-24 19:47] LABS: MICROSCOPIC NOT IND
[2020-06-24] MEDS ORDERED: SODIUM CHLORIDE FLUSH 10ML SYR IVF ONE (21:00)
[2020-06-24] MEDS ORDERED: ONDANSETRON 2MG/ML, 2ML IVPush ONE (21:00)
[2020-06-24] MEDS ORDERED: ONDANSETRON 2MG/ML, 2ML ONE (21:04)
[2020-06-24] MEDS ORDERED: MORPHINE SULFATE 4 MG/ML, 1ML ONE ×2 (21:04→21:35)
[2020-06-24] MEDS: MORPHINE SULFATE 4 MG/ML, 1ML IVPush PRN ×2 (21:08→21:40)
[2020-06-24 22:35] VITALS: BP 121/71
[2020-06-24] MEDS ORDERED: OMNIPAQUE 350 MG/ML, 100ML BOTTLE ONE (23:59)
== END 2020-06-24 22:43 | disposition home or self-care (01) ==
LOC: ED 20:21
DX: R33.9 Retention of urine, unspecified (principal); R30.0 Dysuria; R10.9 Unspecified abdominal pain; I10 Essential (primary) hypertension; E11.9 Type 2 diabetes mellitus without complications; F17.200 Nicotine dependence, unspecified, uncomplicated; E78.00 Pure hypercholesterolemia, unspecified
CPT/HCPCS: 36415; 74177; 80048; 81003; 82040; 85025; 96374; 96375; 96376; 99285; J2270; J2405; Q9967

== ENCOUNTER 2020-08-06 19:32 | Emergency (ER) | payer MEDICAID ==
[~2020-08-06] VITALS: Ht 160 cm; Wt 86.1 kg
[2020-08-06 19:35] VITALS: BP 160/96
[2020-08-06 20:08] LABS: MICROSCOPIC NOT IND
[2020-08-06 21:38] LABS: BASOPHILS % (AUTO) 1 % (0-1); EOSINOPHILS % (AUTO) 2 % (1-7); LYMPHOCYTES % (AUTO) 36 % (22-44); MEAN CORPUSCULAR HEMOGLOBIN 29.9 pg (27.5-34.5); MEAN CORPUSCULAR HGB CONC 33.8 g/dL (33.2-36.2); MEAN PLATELET VOLUME 7.6 fL (7.4-10.4); MONOCYTES % (AUTO) 7 % (2-9); NEUTROPHILS % (AUTO) 53 % (42-75); PLATELET COUNT 268 x10^3/uL (130-400); RED BLOOD COUNT 5.48 x10^6/uL (4.38-5.82); RED CELL DISTRIBUTION WIDTH 13.6 % (9.4-14.8)
[2020-08-06 21:39] LABS: MD NO
[2020-08-06 21:50] LABS: ANION GAP 8 mmol/L (5-15); CALCIUM 9.6 mg/dL (8.5-10.1); CHLORIDE 109 mmol/L (98-107); CREATININE 1.14 mg/dL (0.7-1.3)
--- NOTE | 2020-08-07 01:52 | NUR ---
PT NOT IN LOBBY WHEN CALLED FOR VITAL SIGNS.
--- NOTE | 2020-08-07 03:07 | NUR ---
PT NOT IN LOBBY WHEN CALLED FOR VITAL SIGNS.
--- NOTE | 2020-08-07 03:32 | NUR ---
PT NOT IN LOOBY AT THIS TIME. PT AMA.
== END 2020-08-07 03:35 | disposition left against medical advice (07) ==
LOC: ED 22:37
DX: R30.0 Dysuria (principal); R10.9 Unspecified abdominal pain; M54.5 Low back pain
CPT/HCPCS: 36415; 80048; 81003; 85025; 99283

== ENCOUNTER 2020-09-23 09:04 | Emergency (ER) | payer MEDICAID ==
[~2020-09-23] VITALS: Ht 157.5 cm; Wt 87.7 kg
--- NOTE | 2020-09-23 09:32 | NUR ---
straight cath under sterile technique dont by patient with nurse supervision. UA obtained
[2020-09-23 09:43] LABS: MICROSCOPIC INDICATED
[2020-09-23 10:18] LABS: ANION GAP 10 mmol/L (5-15); CALCIUM 8.7 mg/dL (8.5-10.1); CHLORIDE 109 mmol/L (98-107); CREATININE 0.97 mg/dL (0.7-1.3)
[2020-09-23 10:20] LABS: BASOPHILS % (AUTO) 1 % (0-1); EOSINOPHILS % (AUTO) 2 % (1-7); LYMPHOCYTES % (AUTO) 18 % (22-44); MEAN CORPUSCULAR HEMOGLOBIN 30.4 pg (27.5-34.5); MEAN CORPUSCULAR HGB CONC 34.6 g/dL (33.2-36.2); MEAN PLATELET VOLUME 7.4 fL (7.4-10.4); MONOCYTES % (AUTO) 6 % (2-9); NEUTROPHILS % (AUTO) 73 % (42-75); PLATELET COUNT 256 x10^3/uL (130-400); RED BLOOD COUNT 4.85 x10^6/uL (4.38-5.82); RED CELL DISTRIBUTION WIDTH 13.3 % (9.4-14.8)
[2020-09-23 10:21] LABS: MD NO
[2020-09-23] MEDS ORDERED: CEFTRIAXONE 1,000 MG ONE (10:47)
[2020-09-23] MEDS ORDERED: CEFTRIAXONE 1,000 MG IM ONE (11:00)
[2020-09-23 11:18] VITALS: BP 129/88
--- NOTE | 2020-09-23 11:18 | NUR ---
pt dischared with instructions
== END 2020-09-23 11:20 | disposition home or self-care (01) ==
LOC: ED 09:47
DX: R30.0 Dysuria (principal); R33.9 Retention of urine, unspecified; I10 Essential (primary) hypertension; E11.9 Type 2 diabetes mellitus without complications; E78.00 Pure hypercholesterolemia, unspecified; E78.5 Hyperlipidemia, unspecified; F17.200 Nicotine dependence, unspecified, uncomplicated; E66.9 Obesity, unspecified
CPT/HCPCS: 36415; 80048; 81001; 82040; 85025; 87086; 99283

== ENCOUNTER 2021-01-03 17:57 | Emergency (ER) | payer MEDICAID ==
[~2021-01-03] VITALS: Ht 157.5 cm; Wt 82.0 kg
[2021-01-03 19:24] LABS: MICROSCOPIC NOT IND
[2021-01-03 19:31] LABS: BASOPHILS % (AUTO) 1 % (0-1); EOSINOPHILS % (AUTO) 1 % (1-7); LYMPHOCYTES % (AUTO) 32 % (22-44); MEAN CORPUSCULAR HEMOGLOBIN 30.5 pg (27.5-34.5); MEAN CORPUSCULAR HGB CONC 34.8 g/dL (33.2-36.2); MEAN PLATELET VOLUME 7.1 fL (7.4-10.4); MONOCYTES % (AUTO) 6 % (2-9); NEUTROPHILS % (AUTO) 59 % (42-75); PLATELET COUNT 293 x10^3/uL (130-400); RED BLOOD COUNT 5.63 x10^6/uL (4.38-5.82); RED CELL DISTRIBUTION WIDTH 13.6 % (9.4-14.8)
[2021-01-03 19:34] LABS: MD NO
[2021-01-03 19:43] LABS: ALBUMIN 4.4 g/dL (3.4-5.0); ANION GAP 9 mmol/L (5-15); CALCIUM 9.5 mg/dL (8.5-10.1); CHLORIDE 103 mmol/L (98-107); CREATININE 0.86 mg/dL (0.7-1.3)
--- NOTE | 2021-01-03 20:07 | NUR ---
TASK RN: PT. TO ROOM FROM LOBBY AT THIS TIME. AMBULATORY TO ROOM WITH STEADY GAIT.
--- NOTE | 2021-01-03 20:18 | NUR ---
TASK RN: PT. TO ED WITH C/O BILAT LOWER ABD AND BILAT FLANK PAIN X 2 DAYS. PT. REPORTS STRIGHT CAHTS SELF X 3 YEARS FOR NEUROGENIC BLADDER R/T DMII. PT. C/O N/V WELL. STATES FREQUNT UTI'S. SPO2 AND B/P MONITORS PLACED. CALL LIGHT IN REACH. WARM BLANKETS PROVIDED.
[2021-01-03] MEDS ORDERED: MORPHINE SULFATE 4 MG/ML, 1ML IVPush ONE (21:00)
[2021-01-03] MEDS ORDERED: PHENAZOPYRIDINE 200 MG TABLET PO ONE (21:00)
[2021-01-03] MEDS ORDERED: SODIUM CHLORIDE 0.9% 1,000ML IVBOLUS ONE (21:00)
[2021-01-03] MEDS ORDERED: ONDANSETRON 2MG/ML, 2ML IVPush ONE (21:00)
[2021-01-03] MEDS ORDERED: PHENAZOPYRIDINE 200 MG TABLET ONE (21:08)
[2021-01-03] MEDS ORDERED: ONDANSETRON 2MG/ML, 2ML ONE (21:08)
[2021-01-03] MEDS ORDERED: MORPHINE SULFATE 4 MG/ML, 1ML ONE (21:09)
--- NOTE | 2021-01-03 21:28 | NUR ---
resting in bed. tolerated meds to emar. attached to monitors. vss. law at bedside. no additional questions or needs at this time. rails engaged. bed in low position, call light and belongings within reach. wctm
--- NOTE | 2021-01-03 21:41 | NUR ---
RECEIVED REPORT FROM JUANY REYNAGA
--- NOTE | 2021-01-03 21:57 | NUR ---
PT AMBULATED TO BATHROOM STEADILY. BACK IN BED RESTING. ATTACHED TO MONITORS. VSS. BED IN LOW POSITION, RAILS ENAGAGED. CALL LIGHT AND BELONGOINGS WITHIN REACH. TM
[2021-01-03 22:30] VITALS: BP 125/65
== END 2021-01-03 22:36 | disposition home or self-care (01) ==
LOC: ED 20:24
DX: R30.0 Dysuria (principal); R10.9 Unspecified abdominal pain; I10 Essential (primary) hypertension; E78.5 Hyperlipidemia, unspecified; E78.00 Pure hypercholesterolemia, unspecified; F17.200 Nicotine dependence, unspecified, uncomplicated; E66.9 Obesity, unspecified
CPT/HCPCS: 36415; 76770; 80048; 81003; 82040; 85025; 87491; 87591; 96361; 96374; 96375; 99285; J2270; J2405; J7030

== ENCOUNTER 2021-03-25 22:40 | Emergency (ER) | payer MEDICAID ==
[~2021-03-25] VITALS: Ht 157.5 cm; Wt 80.7 kg
[2021-03-25 22:47] VITALS: BP 165/109
[2021-03-25] MEDS ORDERED: KETOROLAC 30 MG/1 ML ONE (22:57)
[2021-03-25] MEDS ORDERED: OXYcodone/APAP 5/325MG TABLET ONE (22:58)
[2021-03-25] MEDS ORDERED: OXYcodone/APAP 5/325MG TABLET PO ONE (23:00)
[2021-03-25] MEDS ORDERED: KETOROLAC 30 MG/1 ML IM ONE (23:00)
--- NOTE | 2021-03-25 23:32 | NUR ---
RE-EVAL IN TRIAGE BY MIGUEL ANGEL MANDEL
--- NOTE | 2021-03-25 23:43 | NUR ---
Patient given discharge instructions and they have confirmed that they understand the instructions. Patient ambulatory with steady gait. NAD, all questions answered appropriately, denies additional needs at this time. No personal belongings left in room after discharge.
== END 2021-03-25 23:50 | disposition home or self-care (01) ==
LOC: ED 23:00
DX: K08.89 Other specified disorders of teeth and supporting structures (principal); I10 Essential (primary) hypertension; E11.65 Type 2 diabetes mellitus with hyperglycemia; E78.5 Hyperlipidemia, unspecified; E78.00 Pure hypercholesterolemia, unspecified
CPT/HCPCS: 96372; 99283; J1885